=== PATIENT | male | born 1990 ===

== ENCOUNTER 2019-08-20 08:44 | Emergency (ER) | payer OTHER ==
--- NOTE | 2019-08-20 08:59 | ED ---
HPI Chest Pain - HPI Summary HPI Summary: 29 year old male with no significant past medical history presents to the emergency department with a CC of episodic 2/10 left anterior chest pressure and "my left arm is heavy" x 5 days. Pt stats these episodes last minutes and is unable to identify any modifying factors. Pt denies personal or family hx of [place], diabetes. Pt is comfortable at this time and not experiencing pain in the ED. Pt admits to increased stress recently and "I had a panic attack when I was younger." Pt denies fever, SOB, abdominal pain, rash, pain with urination, nausea, vomiting, diarrhea. Pt denies recreational drug use or alcohol use. - History of Current Complaint Time Seen by Provider: 08/20/19 08:46 Hx Obtained From: Patient Onset/Duration: Started Days Ago Timing: Intermittent, Lasting Minutes Initial Severity: Mild Current Severity: Mild Pain Scale Used: 0-10 Numeric Chest Pain Location: Left Anterior Chest Pain Radiates: Yes Chest Pain Radiates To:: Arm Character: Pressure/Squeezing Aggravating Factor(s): Nothing Alleviating Factor(s): Nothing Associated Signs and Symptoms: Positive: Chest Pain, Anxiety, Recent Stress, Shortness of Breath, Lightheadedness, Palpitations. Negative: Vision Changes, Numbness, Syncope, Fever, Chills, Nausea, Cough, Productive Cough, Nonproductive Cough, Abdominal Pain, Vomiting, Wheezing - Allergy/Home Medications Allergies/Adverse Reactions: Allergies Allergy/AdvReac Type Severity Reaction Status Date / Time Penicillins Allergy Unknown Verified 08/20/19 08:51 Reaction Details Home Medications: Home Medications Acetaminophen [Tylenol Extra Strength] 500 mg PO DAILY PRN 08/20/19 [History Confirmed 08/20/19] D-Methorphan/PE/Acetaminophen [Cold Multi-Symptom Daytim] 1 tab PO DAILY PRN [History Confirmed 08/20/19] Diphenhydra/Phenyleph/Acetamin [Cold & Flu Relief Multi-S 12.5-5-325 mg/10Ml] 1 liq PO DAILY PRN 08/20/19 [History Confirmed 08/20/19] Flaxseed Oil 1,000 mg PO DAILY 08/20/19 [History Confirmed 08/20/19] Multivitamins/Minerals TAB* [Theragran/minerals TAB*] 1 tab PO DAILY 08/20/19 [ History Confirmed 08/20/19] Protein Supplement [Protein Powder] 454 gm PO .OCCASIONALLY 08/20/19 [History Confirmed 08/20/19] PMH/Surg Hx/FS Hx/Imm Hx Infectious Disease History: No Infectious Disease History: Denies: Traveled Outside the [place] in Last 30 Days Review of Systems Constitutional: Negative Eyes: Negative ENT: Negative Positive: Palpitations, Chest Pain Positive: Shortness Of Breath Gastrointestinal: Negative Genitourinary: Negative Musculoskeletal: Negative Skin: Negative Neurological/Mental Status: Negative Positive: Anxious. Negative: Depressed All Other Systems Reviewed And Are Negative: Yes Physical Exam Triage Information Reviewed: Yes Vital Signs On Initial Exam: Initial Vitals Temp Pulse Resp BP Pulse Ox 97.7 F 129 20 147/105 100 08/20/19 08:47 08/20/19 08:47 08/20/19 08:47 08/20/19 08:47 08/20/19 08:47 Vital Signs Reviewed: Yes Appearance: Positive: Well-Appearing, No Pain Distress, Well-Nourished Skin: Positive: Warm, Skin Color Reflects Adequate Perfusion Eyes: Positive: EOMI, ANTHONY ENT: Positive: Hearing grossly normal Respiratory/Lung Sounds: Positive: Clear to Auscultation, Breath Sounds Present Cardiovascular: Positive: Tachycardia, S1, S2 Abdomen Description: Positive: Nontender, Soft Bowel Sounds: Positive: Present Musculoskeletal: Positive: Strength/ROM Intact Neurological: Positive: Sensory/Motor Intact, Alert, Oriented to Person Place, Time, Normal Gait, Facial Symmetry, Speech Normal Psychiatric: Positive: Anxious AVPU Assessment: Alert Procedures - Sedation Patient Received Moderate/Deep Sedation with Procedure: No Diagnostics - Vital Signs Vital Signs Temp Pulse Resp BP Pulse Ox 08/20/19 08:47 97.7 F 129 20 147/105 100 - Laboratory Result Diagrams: 08/20/19 08:58 08/20/19 08:58 Lab Statement: Any lab studies that have been ordered have been reviewed, and results considered in the medical decision making process. Chest Pain Course/Dx - Course Course Of Treatment: Pt evaluated for chest pain. Vitals noted, pt afebrile and tachycardic. EKG was done promptly which shows sinus tachycardia at a rate of 114 bpm. No evidence of STEMI. Normal axis, ND, QT interval. Pts tachycardia resolved approx. 10 minutes after arrival without intervention to 80bpm. No evidence of ischemia. Labs returned WNL. Troponin 0.00, serial troponins waved as pt has been symptomatic for days. TSH, lipase, WBC WNL. PERC +, Wells low risk for PE (1.5). HEART score: 1. Chest xray negative for pathology. There was no evidence of life threatening pathology requiring intervention at this time. Pts symtpoms could be due to anxiety. Pt discharged to outpatient followup. - Chest Pain Differential Diagnosis/HQI/PQRI: Acute [place], ACS, Angina - Diagnoses Provider Diagnoses: Atypical chest pain Discharge ED - Sign-Out/Discharge Documenting (check all that apply): Patient Departure - Discharge Plan Condition: Stable Disposition: HOME Patient Education Materials: Chest Pain (ED) Referrals: [facility] [Outside] - 5 Days Additional Instructions: You were seen in the emergency department today due to chest pain. Cardiac workup was done today including an EKG and blood work which found no evidence of acute pathology requiring intervention at this time. Although I am uncertain what is causing your symptoms cardiac origin cannot be ruled out. Please follow- up with your primary care provider or ballistics expert in 5 days for further evaluation and management. Please return to this emergency Department immediately if you develop any new or worsening symptoms. - Billing Disposition and Condition Condition: STABLE Disposition: Home
[2019-08-20 09:08] LABS: ABS Eosinophils 0.1 10^3/ul (0-0.6); ABS Lymphocytes 2.5 10^3/ul (1.0-4.8); ABS Monocytes 0.7 10^3/ul (0-0.8); ABS Neutrophils 3.1 10^3/ul (1.5-7.7); Eosinophil % 1.6 %; Hematocrit 46 % (42-52); Hemoglobin 15.9 g/dL (14.0-18.0); Lymphocyte % 38.9 %; Mean Corpuscular HGB Conc 35 g/dL (31-36); Mean Corpuscular Hemoglobin 31 pg (27-31); Mean Corpuscular Volume 89 fL (80-94); Mean Platelet Volume 8.8 fL (7.4-10.4); Nucleated Red Blood Cells % 0.1; Platelet Count 174 10^3/uL (150-450); Red Blood Count 5.14 10^6 /uL (4.18-5.48); Red Cell Distribution Width 13 % (10-15); White Blood Count 6.5 10^3/uL (3.5-10.8)
[2019-08-20 09:24] LABS: Albumin 4.4 g/dL (3.2-5.2); Albumin/Globulin Ratio 1.3 (1-3); BUN/Creatinine Ratio 13.5 (8-20); Calcium 9.6 mg/dL (8.6-10.3); EGFR African American 101.5 (>60); EGFR Non-African American 83.9 (>60); Globulin 3.3 g/dL (2-4); Magnesium 1.9 mg/dL (1.9-2.7); Potassium 3.6 mmol/L (3.5-5.0); Total Bilirubin 0.4 mg/dL (0.2-1.0); Total Protein 7.7 g/dL (6.4-8.9)
[2019-08-20 10:11] LABS: TSH (Thyroid Stimulating Horm) 2.25 mcIU/mL (0.34-5.60)
[2019-08-20 10:28] VITALS: BP 163/83
== END 2019-08-20 10:28 | disposition home or self-care (01) ==
LOC: ED 08:44
DX: R07.89 Other chest pain (principal); R00.2 Palpitations; F41.9 Anxiety disorder, unspecified; Z79.899 Other long term (current) drug therapy; R06.02 Shortness of breath; Z88.0 Allergy status to penicillin
CPT/HCPCS: 36415; 71046; 80053; 83605; 83735; 84443; 84484; 85025; 93005; 99283